=== PATIENT | male | born 1990 | race Caucasian/White ===

== ENCOUNTER 2023-10-05 18:36 | Emergency (ER) | payer BC, MEDICAID ==
[~2023-10-05] VITALS: Ht 185.4 cm; Wt 81.9 kg
[2023-10-05] MEDS ORDERED: LORA-1041 (18:45)
[2023-10-05] MEDS ORDERED: ADVA115A (18:45)
[2023-10-05 20:07] LABS: BASO % 0.4 % (0.0-1.0); EOS % 0.4 % (0.0-3.0); HEMOGLOBIN 17.6 g/dl (13.5-17.5); LYMPH # 1.1 10^3/uL (1.5-5.0); LYMPH % 17.1 % (24.0-44.0); MEAN CORPUSCULAR HEMOGLOBIN 34.4 pg (27.0-33.0); MEAN CORPUSCULAR HGB CONC 37.4 g/dl (32.0-36.5); MONO # 0.6 10^3/uL (0.0-0.8); MONO % 8.4 % (2.0-8.0); NEUTROPHILS # 4.9 10^3/uL (1.5-8.5); NEUTROPHILS % 73.4 % (36.0-66.0); PLATELET COUNT, AUTOMATED 220 10^3/uL (150-450); RED BLOOD COUNT 5.11 10^6/uL (4.30-6.10); WHITE BLOOD COUNT 6.7 10^3/uL (4.0-10.0)
[2023-10-05 21:17] LABS: CK-MB VALUE MASS < 1.0 NG/ML (<3.6); LIPASE 31 U/L (12-53)
[2023-10-05 21:19] LABS: ALBUMIN 4.9 G/DL (3.2-5.2); ALKALINE PHOSPHATASE 97 U/L (46-116); ALT/SGPT 64 U/L (7.0-40); AST/SGOT 37 U/L (<34); BILIRUBIN,DIRECT 0.4 MG/DL (<0.4); BILIRUBIN,TOTAL 1.2 MG/DL (0.3-1.2); BLOOD UREA NITROGEN 9 MG/DL (9-23); CALCIUM LEVEL 10.5 MG/DL (8.5-10.1); CARBON DIOXIDE LEVEL 28 MMOL/L (20-31); CHLORIDE LEVEL 102 MMOL/L (98-107); CREATININE FOR GFR 0.76 MG/DL (0.70-1.30); GLOMERULAR FILTRATION RATE > 60.0 (>60); GLUCOSE, FASTING 96 MG/DL (60-100); SODIUM LEVEL 135 MMOL/L (136-145)
[2023-10-05 21:20] LABS: CPK CREATINE PHOSPHOKINASE 130 U/L (46-171); MB/CK RELATIVE INDEX 0.76 (< OR =4)
[2023-10-05] MEDS ORDERED: ISOVUE-370 76% 100ML VIAL As Ordered ONE (21:22)
[2023-10-05 22:41] VITALS: BP 121/79; TEMP 97.2; O2SAT 100
== END 2023-10-05 22:43 | disposition home or self-care (01) ==
LOC: M ED 18:36
DX: R07.89 Other chest pain (principal); J45.909 Unspecified asthma, uncomplicated; F17.220 Nicotine dependence, chewing tobacco, uncomplicated; Z82.49 Family history of ischemic heart disease and other diseases of the circulatory system; Z88.2 Allergy status to sulfonamides; Z88.1 Allergy status to other antibiotic agents
CPT/HCPCS: 71045; 71275; 80048; 80076; 82550; 82553; 83690; 84484; 85025; 93005; 99284; Q9967

== ENCOUNTER → 2025-01-10 | Outpatient (CLI) | payer BC ==
[~2025-01-10] MED LIST: ADVA115A; LORA-1041
[2025-01-10 12:34] LABS: HEMATOCRIT 48.6 % (42.0-52.0); HEMOGLOBIN 17.5 g/dl (13.5-17.5); MEAN CORPUSCULAR HEMOGLOBIN 34.4 pg (27.0-33.0); MEAN CORPUSCULAR VOLUME 95.5 fl (80.0-96.0); PLATELET COUNT, AUTOMATED 223 10^3/uL (150-450); RED BLOOD COUNT 5.09 10^6/uL (4.30-6.10); WHITE BLOOD COUNT 4.3 10^3/uL (4.0-10.0)
[2025-01-10 12:58] LABS: PERCENT SATURATION 61.8 % (19.7-50.0)
[2025-01-10 12:59] LABS: BILIRUBIN,DIRECT 0.4 MG/DL (<0.4); BILIRUBIN,TOTAL 1.2 MG/DL (0.3-1.2); TOTAL PROTEIN 8.3 G/DL (5.7-8.2)
[2025-01-10 13:04] LABS: FERRITIN 198.3 NG/ML (10.5-307.3)
== END ==
LOC: M LAB 11:31
PROVIDERS: ATTEND Internal Medicine Cardiovascular Disease
DX: E83.119 Hemochromatosis, unspecified (principal)

== ENCOUNTER → 2025-01-10 | Outpatient (CLI) | payer BC ==
[2025-01-10 12:26] LABS: SEMEN APPEARANCE OPAQUE (OPAQUE)
[2025-01-10 12:27] LABS: SEMEN VISCOSITY LIQUID (LIQUID); SEMEN VOLUME 1.6 ml (2.0-5.0); SEMEN pH 8.5 (7.0-8.0); SPERM CONCENTRATION 23.5 M/ml (>=15.0); TOTAL PROGRESSIVE SPERM 11.5 M/Ejac.; WBC CONCENTRATION >1 M/ml (<=1 M/ml)
[2025-01-10 13:08] LABS: IRON (FE) 206 UG/DL (65-175); PERCENT SATURATION 70.5 % (19.7-50.0); TOTAL IRON BINDING CAPACITY 292 UG/DL (250-425)
[2025-01-10 13:09] LABS: ALBUMIN 4.9 G/DL (3.2-5.2); ALKALINE PHOSPHATASE 103 U/L (40-129); ALT/SGPT 116 U/L (7.0-40); AST/SGOT 81 U/L (<34); BILIRUBIN,DIRECT 0.4 MG/DL (<0.4); BILIRUBIN,TOTAL 1.1 MG/DL (0.3-1.2); BLOOD UREA NITROGEN 11 MG/DL (9-23); CALCIUM LEVEL 10.4 MG/DL (8.5-10.1); CARBON DIOXIDE LEVEL 30 MMOL/L (20-31); CHLORIDE LEVEL 98 MMOL/L (98-107); CHOLESTEROL LEVEL 165 MG/DL (<200); CHOLESTEROL RISK RATIO 2.03 (<5); CREATININE FOR GFR 0.77 MG/DL (0.70-1.30); GLOMERULAR FILTRATION RATE > 90.0 (>60); GLUCOSE, FASTING 126 MG/DL (60-100); LDL CHOLESTEROL 78.2 MG/DL (<100); SODIUM LEVEL 137 MMOL/L (136-145); TOTAL PROTEIN 7.9 G/DL (5.7-8.2); TRIGLYCERIDES LEVEL 29 MG/DL (<150)
[2025-01-10 13:10] LABS: FERRITIN 182.6 NG/ML (10.5-307.3)
[2025-01-10 14:07] LABS: HEPATITIS B SURFACE ANTIGEN NEGATIVE (NEGATIVE)
[2025-01-10 14:27] LABS: HEPATITIS B CORE ANTIBODY IGM NEGATIVE (NEGATIVE)
[2025-01-10 14:28] LABS: HEPATITIS C VIRUS ABY INDEX 0.03 INDEX (<0.8)
== END ==
LOC: M LAB 11:43
PROVIDERS: ATTEND Physician Assistant
DX: R74.01 Elevation of levels of liver transaminase levels (principal)